=== PATIENT | female | born 1955 | race Hispanic/Latino ===

== ENCOUNTER 2017-02-01 22:20 | Emergency (ER) | payer MEDICARE ==
--- NOTE | 2017-02-01 22:35 | Emergency Department Report ---
ED General Adult HPI - General Chief complaint: Hyperglycemia Stated complaint: HYPERGLYCEMIA Time Seen by Provider: 02/01/17 22:31 Source: patient, EMS (ems notes not available at time of chart dictation), RN notes reviewed, old records reviewed Mode of arrival: Stretcher Limitations: No Limitations - History of Present Illness Initial comments: This is a 61-year-old female, patient is previously unknown today. She has a past medical history of diabetes. Prior documentation indicates that the patient's hyperglycemia is poorly controlled. The patient presents to the ER EMS with complaint of left-sided flank pain. The flank pain has been present for 2 weeks. It is intermittent. He does not have exacerbating or relieving factors. It does not radiate anywhere. There is no chest pain, shortness of breath, irritative urinary symptoms, there is no posterior leg pain, no recent surgeries, no pulmonary embolus or DVT risk factors. Patient incidentally also found to be hyperglycemic, however this is not her main complaint. -: Gradual, week(s) Location: back Consistency: intermittent Improves with: none Worsens with: none Associated Symptoms: malaise. denies: confusion, chest pain, cough, diaphoresis , headaches, loss of appetite, shortness of breath, syncope - Related Data Previous Rx's Medication Instructions Recorded Last Taken Type Acetaminophen [Tylenol Arthritis] 650 mg PO Q6HR PRN #30 tablet.er 02/02/17 Unknown Rx Ibuprofen [Motrin] 600 mg PO Q8H PRN #30 tablet 02/02/17 Unknown Rx metFORMIN [Glucophage] 1,000 mg PO BID #60 tablet 02/02/17 Unknown Rx Allergies Allergy/AdvReac Type Severity Reaction Status Date / Time No Known Allergies Allergy Verified 07/18/16 01:01 ED Review of Systems ROS: Stated complaint: HYPERGLYCEMIA Other details as noted in HPI Constitutional: malaise. denies: fever Eyes: denies: vision change ENT: denies: epistaxis Respiratory: denies: cough Cardiovascular: denies: chest pain Gastrointestinal: denies: abdominal pain Genitourinary: denies: dysuria Musculoskeletal: back pain Skin: denies: lesions Neurological: weakness Psychiatric: anxiety ED Past Medical Hx - Past Medical History Previous Medical History?: Yes Hx Hypertension: No Hx Diabetes: Yes (27YRS IDDM) Hx Renal Disease: No Hx Seizures: No Hx Asthma: No Hx COPD: No - Surgical History Past Surgical History?: No - Social History Smoking Status: Current Every Day Smoker Substance Use Type: None - Medications Home Medications: Home Medications Medication Instructions Recorded Confirmed Last Taken Type Acetaminophen [Tylenol Arthritis] 650 mg PO Q6HR PRN #30 tablet.er 02/02/17 Unknown Rx Ibuprofen [Motrin] 600 mg PO Q8H PRN #30 tablet 02/02/17 Unknown Rx metFORMIN [Glucophage] 1,000 mg PO BID #60 tablet 02/02/17 Unknown Rx ED Physical Exam - General Limitations: No Limitations General appearance: alert, in no apparent distress - Head Head exam: Present: atraumatic, normocephalic - Eye Eye exam: Present: normal appearance, EOMI. Absent: nystagmus - ENT ENT exam: Present: normal exam, normal orophraynx, mucous membranes moist, normal external ear exam - Neck Neck exam: Present: normal inspection, full ROM. Absent: tenderness, meningismus - Respiratory Respiratory exam: Present: normal lung sounds bilaterally. Absent: respiratory distress, wheezes, rales, rhonchi, stridor, chest wall tenderness, accessory muscle use, decreased breath sounds, prolonged expiratory - Cardiovascular Cardiovascular Exam: Present: regular rate, normal rhythm, normal heart sounds. Absent: bradycardia, tachycardia, irregular rhythm, systolic murmur, diastolic murmur, rubs, gallop - GI/Abdominal GI/Abdominal exam: Present: soft, normal bowel sounds. Absent: distended, tenderness, guarding, rebound, rigid, pulsatile mass - Extremities Exam Extremities exam: Present: normal inspection, full ROM, normal capillary refill. Absent: tenderness, pedal edema, joint swelling, calf tenderness - Back Exam Back exam: Present: normal inspection, full ROM. Absent: tenderness, paraspinal tenderness - Neurological Exam Neurological exam: Present: alert, oriented X3, other (Extraocular movements intact. Tongue midline. No facial droop. Facial sensation intact to light touch in the V1, V2, V3 distribution bilaterally. 5 and 5 strength in 4 extremities.. Sensation is intact to light touch in 4 extremities.). Absent: motor sensory deficit - Psychiatric Psychiatric exam: Present: normal affect, normal mood - Skin Skin exam: Present: warm, dry, intact, normal color. Absent: rash ED Course Vital Signs 02/01/17 02/02/17 22:35 02:24 Temperature 98.1 F Pulse Rate 83 78 Respiratory 15 18 Rate Blood Pressure 170/76 122/73 [Left] O2 Sat by Pulse 98 100 Oximetry - Reevaluation(s) Reevaluation #1: 02/02/17 00:11 Differential diagnosis: Pulmonary embolus, pneumonia, muscular sprain, muscular strain, urinary tract infection, incidental hyperglycemia Assessment and plan: 61-year-old female with 2 weeks of intermittent left flank pain. No pulmonary embolus or DVT risk factors, low risk by well's criteria, d- dimer negative. X-ray of the chest is negative, laboratory studies unremarkable with the exception of hyperglycemia. Patient will be treated with acetaminophen and Toradol, noncontrast CT scan of the abdomen/pelvis is pending at this time. Her hyperglycemia will be treated with insulin. Reevaluation #2: 02/02/17 02:36 Hyperglycemia improved. Vital signs remained stable. CT scan negative. Patient feels improved. Patient is suitable to follow up with outpatient primary care doctor. Return precautions are reviewed. ED Medical Decision Making - Lab Data Result diagrams: 02/01/17 22:53 02/01/17 22:53 Vital Signs 02/01/17 22:35 Temperature 98.1 F Pulse Rate 83 Respiratory 15 Rate Blood Pressure 170/76 [Left] O2 Sat by Pulse 98 Oximetry Lab Results 02/01/17 02/01/17 02/01/17 Range/Units 22:53 22:53 22:53 WBC 10.3 (4.5-11.0) K/mm3 RBC 5.21 H (3.65-5.03) M/mm3 Hgb 14.7 H (10.1-14.3) gm/dl Hct 44.5 H (30.3-42.9) % MCV 85 (79-97) fl MCH 28 (28-32) pg MCHC 33 (30-34) % RDW 13.1 L (13.2-15.2) % Plt Count 323 (140-440) K/mm3 Lymph % (Auto) 27.2 (13.4-35.0) % Childress % (Auto) 10.0 H (0.0-7.3) % Eos % (Auto) 3.4 (0.0-4.3) % Baso % (Auto) 1.4 (0.0-1.8) % Lymph # 2.8 (1.2-5.4) K/mm3 Childress # 1.0 H (0.0-0.8) K/mm3 Eos # 0.3 (0.0-0.4) K/mm3 Baso # 0.1 (0.0-0.1) K/mm3 Seg Neutrophils % 58.0 (40.0-70.0) % Seg Neutrophils # 6.0 (1.8-7.7) K/mm3 PT (12.2-14.9) Sec. INR (0.87-1.13) D-Dimer (0-234) ng/mlDDU VBG pH 7.372 (7.320-7.420) Sodium 135 L (137-145) mmol/L Potassium 4.3 (3.6-5.0) mmol/L Chloride 95.0 L (98-107) mmol/L Carbon Dioxide 24 (22-30) mmol/L Anion Gap 20 mmol/L BUN 14 (7-17) mg/dL Creatinine 0.6 L (0.7-1.2) mg/dL Estimated GFR > 60 ml/min BUN/Creatinine Ratio 23.33 % Glucose 480 H (65-100) mg/dL Calcium 8.8 (8.4-10.2) mg/dL Total Bilirubin 0.20 (0.1-1.2) mg/dL AST 10 (5-40) units/L ALT 10 (7-56) units/L Alkaline Phosphatase 170 H (35-129) units/L Total Protein 7.1 (6.3-8.2) g/dL Albumin 3.7 L (3.9-5) g/dL Albumin/Globulin Ratio 1.1 % 02/01/17 Range/Units 23:08 WBC (4.5-11.0) K/mm3 RBC (3.65-5.03) M/mm3 Hgb (10.1-14.3) gm/dl Hct (30.3-42.9) % MCV (79-97) fl MCH (28-32) pg MCHC (30-34) % RDW (13.2-15.2) % Plt Count (140-440) K/mm3 Lymph % (Auto) (13.4-35.0) % Childress % (Auto) (0.0-7.3) % Eos % (Auto) (0.0-4.3) % Baso % (Auto) (0.0-1.8) % Lymph # (1.2-5.4) K/mm3 Childress # (0.0-0.8) K/mm3 Eos # (0.0-0.4) K/mm3 Baso # (0.0-0.1) K/mm3 Seg Neutrophils % (40.0-70.0) % Seg Neutrophils # (1.8-7.7) K/mm3 PT 13.1 (12.2-14.9) Sec. INR 0.95 (0.87-1.13) D-Dimer 214.15 (0-234) ng/mlDDU VBG pH (7.320-7.420) Sodium (137-145) mmol/L Potassium (3.6-5.0) mmol/L Chloride (98-107) mmol/L Carbon Dioxide (22-30) mmol/L Anion Gap mmol/L BUN (7-17) mg/dL Creatinine (0.7-1.2) mg/dL Estimated GFR ml/min BUN/Creatinine Ratio % Glucose (65-100) mg/dL Calcium (8.4-10.2) mg/dL Total Bilirubin (0.1-1.2) mg/dL AST (5-40) units/L ALT (7-56) units/L Alkaline Phosphatase (35-129) units/L Total Protein (6.3-8.2) g/dL Albumin (3.9-5) g/dL Albumin/Globulin Ratio % - Radiology Data Radiology results: pending, report reviewed, image reviewed interpreted by me: X-ray of the chest is negative for acute disease Noncontrast CT scan of the abdomen/pelvis is negative for acute disease Critical care attestation.: If time is entered above; I have spent that time in minutes in the direct care of this critically ill patient, excluding procedure time. ED Disposition Clinical Impression: Hyperglycemia, Left flank pain Disposition: DC- TO HOME OR SELFCARE Is pt being admited?: No Does the pt Need Aspirin: No Condition: Stable Instructions: Diabetic Hyperglycemia (ED) Additional Instructions: Continue current outpatient medications. Take the pain medication as directed. Please note that blood sugar and blood pressure both elevated in the emergency department, and these seem to be followed up by primary care doctor within the next month. Long-term complications of hypertension and hyperglycemia includes stroke, heart attack, disability, , paralysis, loss of quality of life. Return to the ER right away with new pain, worsened pain, migration of pain, fevers, chills, lethargy, irritability, projectile vomiting, change in mental status, inability to tolerate liquid feeds. Prescriptions: Acetaminophen [Tylenol Arthritis] 650 mg PO Q6HR PRN #30 tablet.er PRN Reason: Pain Ibuprofen [Motrin] 600 mg PO Q8H PRN #30 tablet PRN Reason: Pain metFORMIN [Glucophage] 1,000 mg PO BID #60 tablet Referrals: PRIMARY CAREMD [Primary Care Provider] - 3-5 Days NOREEN NIEVES MD [Staff Physician] - 3-5 Days [facility] [Provider Group] - 3-5 Days
[2017-02-01 23:09] LABS: Basophils % (Auto) 1.4 % (0.0-1.8); Eosinophils % (Auto) 3.4 % (0.0-4.3); Hematocrit 44.5 % (30.3-42.9); Hemoglobin 14.7 gm/dl (10.1-14.3); Mean Corpuscular HGB Conc 33 % (30-34); Mean Corpuscular Hemoglobin 28 pg (28-32); Mean Corpuscular Volume 85 fl (79-97); Platelet Count 323 K/mm3 (140-440); Red Blood Count 5.21 M/mm3 (3.65-5.03); Red Cell Distribution Width 13.1 % (13.2-15.2); White Blood Count 10.3 K/mm3 (4.5-11.0)
[2017-02-01 23:30] LABS: Alanine Aminotransferase 10 units/L (7-56); Albumin 3.7 g/dL (3.9-5); Albumin/Globulin Ratio 1.1 %; Alkaline Phosphatase 170 units/L (35-129); Anion Gap 20 mmol/L; BUN/Creatinine Ratio 23.33; Blood Urea Nitrogen 14 mg/dL (7-17); Calcium 8.8 mg/dL (8.4-10.2); Carbon Dioxide 24 mmol/L (22-30); Glucose 480 mg/dL (65-100); Potassium 4.3 mmol/L (3.6-5.0); Sodium 135 mmol/L (137-145); Total Protein 7.1 g/dL (6.3-8.2)
[2017-02-01] MEDS ORDERED: NACL 0.9% 1000 ML 1,000 ML ONE (23:43)
[2017-02-01 23:53] LABS: INR 0.95 (0.87-1.13)
[2017-02-02] MEDS ORDERED: NACL 0.9% 1000 ML 1,000 ML IV ONE (00:03)
[2017-02-02] MEDS ORDERED: TYLENOL PO ONE (00:10)
[2017-02-02] MEDS ORDERED: TORADOL IV ONE (00:10)
[2017-02-02 00:25] LABS: Bacteria,Urine 1+ /HPF (Negative); Bilirubin,Urine NEG (Negative); Blood,Urine NEG (Negative); Ketones,Urine 20 mg/dL (Negative); Leukocyte Esterase,Urine NEG (Negative); Mucus,Urine FEW /HPF; Nitrite,Urine NEG (Negative); Urobilinogen,Urine < 2.0 mg/dL (<2.0)
--- NOTE | 2017-02-02 01:58 | Cat Scan Report ---
FINAL REPORT PROCEDURE: CT ABDOMEN PELVIS WO CON TECHNIQUE: Computerized axial tomography of the abdomen and pelvis was performed without intravenous contrast. This study is performed without intravascular contrast material and its sensitivity for abdominal and pelvic pathology, including neoplasms, inflammation, abscess, free fluid, thrombosis, arterial dissection and infarction, is reduced compared with a contrast enhanced study. HISTORY: left flank pain COMPARISON: No prior studies are available for comparison. FINDINGS: Visualized lower thorax: No significant abnormality. Liver: Normal size and attenuation. Spleen: Normal size and attenuation. Gallbladder and biliary system: There has been a cholecystectomy. The bile ducts are normal in caliber.. Pancreas: Normal. Adrenals: Normal. Kidneys: There are no kidney stones. There is mild bilateral hydroureter and hydronephrosis which could be due to reflux.. GI tract: There is no bowel obstruction, colitis or enteritis. The appendix is normal.. Lymph nodes and mesentery: Normal. Vasculature: Normal. Bladder: Normal. Reproductive organs: Uterus is atrophic.. Peritoneum: There is no ascites, free air, abscess or adenopathy.. Musculoskeletal structures: No significant abnormality. Other: None. IMPRESSION: There has been a cholecystectomy. The bile ducts are normal in caliber.. There are no kidney stones. There is mild bilateral hydroureter and hydronephrosis which could be due to reflux.. There is no bowel obstruction, colitis or enteritis. The appendix is normal.. Uterus is atrophic.. There is no ascites, free air, abscess or adenopathy.. .
[2017-02-02 02:25] VITALS: BP 122/73
--- NOTE | 2017-02-02 07:28 | XRay Report ---
AP CHEST: HISTORY: Left flank pain, left chest pain AP view of the chest demonstrates a normal mediastinal and cardiac contour with clear lungs and normal bony and soft tissue structures. IMPRESSION: Unremarkable AP chest.
== END 2017-02-02 03:45 | disposition home or self-care (01) ==
LOC: ED 22:20
DX: E11.65 Type 2 diabetes mellitus with hyperglycemia (principal); R10.9 Unspecified abdominal pain; F17.200 Nicotine dependence, unspecified, uncomplicated
CPT/HCPCS: 36415; 51701; 71010; 74176; 80053; 81001; 82805; 82962; 85025; 85027; 85379; 85610; 96361; 96374; 96375; 99285; J1885; J7030; J1815